=== PATIENT | female | born 1950 | race Caucasian/White ===

== ENCOUNTER 2019-01-31 01:58 | Inpatient (IN) | payer OTHER, MEDICAID ==
[2019-01-31] VITALS (9 sets, daily range): BP systolic 106–129; BP diastolic 44–61
[~2019-01-31] VITALS: Ht 152.4 cm; Wt 78.5 kg
--- NOTE | 2019-01-31 01:58 | NUR ---
Note undone in EDM - 01/31/19 at 0211 by [facility] PT BIB [facility] TO ED FOR PRE-BOOK. PT WAS DIAGNOSED WITH MRSA WOUND BLE 2 WKS AGO. ALSO STATED SIPHYLIS INFECTION, TAKING BACTRIM AND KEFLEX X 4 DAYS. DENIES PMH. PT AAO X4, GCS 15. AMBULATORY WOTH STDEAY GAIT. SKIN WARM AND DRY, NOTED BLE WOUND. VSS, NO ACUTE DISTRESS AT THIS TIME. DR.KURERA FORBES EAWARE OF PT STATUS. WILL CONTINUE TO MONITOR
--- NOTE | 2019-01-31 01:58 | NUR ---
PT [facility] TO ER BED 11
[2019-01-31] MEDS ORDERED: NACL 0.9% 1,000 ML IV SCH (02:04)
[2019-01-31] MEDS ORDERED: cefTRIAXone 1,000 MG in DEXT 5% MINI-BAG PLUS 50 ML IV ONE (02:05)
[2019-01-31] MEDS ORDERED: cefTRIAXone 1,000 MG VIAL ONE ×2 (02:10→02:11)
--- NOTE | 2019-01-31 02:16 | NUR ---
EMT PERFORMING EKG AT BEDSIDE.
--- NOTE | 2019-01-31 02:19 | NUR ---
EKG PERFORMED AT BEDSIDE. PT COVERED IN GOWN DURING PROCEDURE
--- NOTE | 2019-01-31 02:22 | NUR ---
XRAY AT BEDSIDE.
--- NOTE | 2019-01-31 02:23 | NUR ---
MARY FROM HOME FOR ALOC PER SON. PT ARRIVES AWAKE, A/O TO PERSON, PLACE, EVENT, MONTH. PT UNABLE TO PROVIDE CORRECT YEAR. WHEN ASKED WHAT HAPPENED PRIOR TO AMBULANCE PT STATES "I WAS SLEEPING. MY SON WANTED HIS GIRLFRIEND TO STAY AT THE HOUSE." SPEECH IS INAPPROPRIATE TO SOME QUESTIONS ASKED. PT ABLE TO FOLLOW COMMANDS. PT APPEARS TIRED, SOMEWHAT CONFUSED. -- PT CALM, COOPERATIVE. -- SKIN PINK, WARM, DRY. BREATHING EVEN, UNLABORED. SPO2 86% ON RA. PT PLACED ON 2 LPM O2 VIA NC: SPO2- 99% -- HAND MOLD MAKER STRONG, EQUAL. PEDAL PUSHES STRONG, EQUAL. NO WEAKNESS NOTED. PMH-- DM, HTN, PACEMAKER, ESRD; DIALYSIS MWF Addendum: 01/31/[address] [facility] SHUNT NOTED TO RIGHT UPPER ARM. THRILL/BRUIT NOTED.
[2019-01-31 02:25] LABS: BASOPHILS # (AUTO) 0.1 K/uL (0.00-0.22); BASOPHILS % (AUTO) 1.3 % (0.0-2.0); EOSINOPHILS # (AUTO) 0.4 K/uL (0-0.4); EOSINOPHILS % (AUTO) 5.7 % (0.0-4.0); HEMATOCRIT 40.6 % (36-48); HEMOGLOBIN 13.6 g/dL (12.0-16.0); LYMPHOCYTES # (AUTO) 1.8 K/uL (2.5-16.5); LYMPHOCYTES % (AUTO) 22.7 % (20.5-51.1); MEAN CORPUSCULAR HEMOGLOBIN 34 pg (27-31); MEAN CORPUSCULAR HGB CONC 34 g/dL (33-37); MEAN CORPUSCULAR VOLUME 101.2 fL (80-94); MONOCYTES # (AUTO) 0.8 K/uL (0.8-1.0); MONOCYTES % (AUTO) 10.3 % (1.7-9.3); NEUTROPHILS # (AUTO) 4.6 K/uL (1.8-7.7); PLATELET COUNT (AUTO) 129 K/uL (140-450); RED BLOOD CELL COUNT(AUTO) 4.01 MIL/uL (4.20-5.40); RED CELL DISTRIBUTION WIDTH 14.1 % (11.6-13.7); WHITE BLOOD COUNT (AUTO) 7.7 K/uL (4.8-10.8)
[2019-01-31 02:43] LABS: ANION GAP 12.2 (8-16); CARBON DIOXIDE 31.5 mmol/L (21-32); POTASSIUM 3.7 mmol/L (3.5-5.1)
[2019-01-31 02:44] LABS: ALBUMIN 3.2 g/dL (3.4-5.0); TOTAL BILIRUBIN 0.7 mg/dL (0.0-1.0)
[2019-01-31 02:45] LABS: CREATININE 4.9 mg/dL (0.6-1.3)
--- NOTE | 2019-01-31 03:00 | NUR ---
SON IS AT BEDSIDE. WHEN ASKED FOR MORE INFORMATION, SON STATES "SHE'S ACTING LIKE SHE'S DRUNK. THE LAST TIME SHE ACTED THIS WAY WAS WHEN SHE TOOK TOO MANY SLEEPING PILLS". PT STATES SHE ONLY TOOK ONE SLEEPING PILL BUT DOES NOT KNOW THE NAME OF THE MEDICATION. SON STATES HE LEFT HER MEDICATIONS AT HOME AND WILL GO BACK TO GET THEM.
--- NOTE | 2019-01-31 03:40 | NUR ---
PT TAKEN TO CT [facility]IA [facility].
--- NOTE | 2019-01-31 03:52 | NUR ---
PT RETURNED FROM [facility]IA [facility].
--- NOTE | 2019-01-31 04:14 | NUR ---
PT SLEEPING DEEPLY, SNORING LOUDLY. AROUSABLE TO SHAKING, PAINFUL STIMULI. VSS. SKIN PINK, WARM, DRY. BREATHING EVEN, UNLABORED.
[2019-01-31] MEDS ORDERED: MORPHINE SULFATE 2 MG/ML SYR IVP PRN (05:05)
[2019-01-31] MEDS ORDERED: MEDICATION REC. PHARMACY CONS. 1 EA MISC MC PRN (05:05)
[2019-01-31] MEDS ORDERED: ACETAMINOPHEN 325 MG TAB PO PRN (05:05)
[2019-01-31] MEDS ORDERED: DOCUSATE SODIUM 100 MG GELCAP PO PRN (05:05)
[2019-01-31] MEDS ORDERED: HYDROcodone/APAP 7.5/325 MG 1 TAB PO PRN (05:05)
[2019-01-31] MEDS ORDERED: INSULIN LISPRO SLIDING SCALE 100 UNITS/ML VIAL SUBQ PRN (05:15)
[2019-01-31] MEDS ORDERED: DEXTROSE 50% 50 ML SYR IVP PRN (05:15)
--- NOTE | 2019-01-31 05:36 | NUR ---
Patient will be admitted to care of Dr. Brizuela. Admited to TELE. Will go to room 121A. Belongings list completed. Report to VINC[facility] Watts.
--- NOTE | 2019-01-31 05:40 | NUR ---
ADMITTED A 69 F FROM ER. CAME BY [facility] DUE TO ALOC. PT IS AWAKE,ALERT ,ORIENTED X2. TELE PT . WITH PACEMAKER. NO C/O ANY DISCOMFORT NOR PAIN NOTED. SKIN ASSESSMENT DONE. SKIN INTACT. WITH HL ON THE LT AC G#20. CLEAR AND PATENT. HD PT WITH RT UPPER ARM AV SHUNT WITH GOOD BRUIT AND THRILL . DRESSING DRY AND CLEAN. ORIENTED TO HOSPITAL ROUTINES. BUT STILL NEED REINFORCEMENT. BED PLACED ON LOW POSITION. FREQ ROUNDS NEEDED , CALL LIGHT PLACED WITHIN EASY REACH AND BED ALARM ON. INITIATE HIGH RISK FOR FALL . AND ALSO RESTRICTED ARM BAND FOR RT AV SHUNT. WILL ENDORSED PT TO AM NURSE FOR COMPLETE ADMISSION.
[2019-01-31] MEDS: NACL 0.9% 1,000 ML IV SCH (05:59)
--- NOTE | 2019-01-31 06:00 | NUR ---
IVF NS @100ML /HR ON THE LT AC G#20.
[2019-01-31] MEDS: BLOOD GLUCOSE MONITORING 1 DEV DEV FS SCH ×2 (06:39→11:30)
--- NOTE | 2019-01-31 06:39 | NUR ---
BLOOD SUGAR WAS CHECKED RESULT 107. NO INSULIN COVERAGE.
[2019-01-31 06:42] LABS: PROTHROMBIN TIME 13.2 secs (10.8-13.4)
--- NOTE | 2019-01-31 07:10 | NUR ---
ENDORSED PATIENT IN STABLE CONDITION TO DAY NURSE FOR CONTINUITY OF CARE.
[2019-01-31 07:14] LABS: CHOL/HDL RATIO 2.2 (1-4.5); MAGNESIUM 1.7 mg/dL (1.8-2.4); PHOSPHORUS 2.9 mg/dL (2.5-4.9)
[2019-01-31 07:15] LABS: FREE T4 (FREE THYROXINE) 0.91 ng/dL (0.76-1.46); THYROID STIMULATING HORMONE 5.3 uIU/mL (0.34-3.74)
--- NOTE | 2019-01-31 07:25 | NUR ---
PATIENT RECEIVED FROM NIGHT NURSE. AAO X 2. EATING BREAKFAST IN BED HIGH SOSA. BED IN LOW POSITION. IN NO DISTRESS. NO PAIN REPORTED. IV IN PLACE INFUSING PER ORDER. REVIEWED PLAN OF CARE WITH PATIENT, REINFORCEMENT NEEDED. CALL SEWELL WITHIN REACH. SAFETY PRECAUTIONS IN PLACE. ALL NEEDS MET AT THIS TIME. WILL CONTINUE TO MONITOR.
--- NOTE | 2019-01-31 08:24 | NUR ---
PATIENT HAS BEEN SCREENED AND CATEGORIZED MODERATE NUTRITION RISK. PATIENT WILL BE SEEN WITHIN 3-5 DAYS OF ADMISSION. 02/02/19-02/04/[address]
[2019-01-31] MEDS ORDERED: MAG SULF 2000 MG/WATER PREMIX 50 ML IV SCH (09:30)
--- NOTE | 2019-01-31 10:10 | NUR ---
MEDICATIONS ADMINISTERED PER ORDER. PATIENT TOLERATED WELL AND IS IN NO DISTRESS. SAFETY MEASURES IN PLACE. WILL CONTINUE TO MONITOR.
[2019-01-31] MEDS ORDERED: DULO30EC PO (10:55)
[2019-01-31] MEDS ORDERED: FURO80TA6 PO (10:55)
[2019-01-31] MEDS ORDERED: METO100T14 PO (10:55)
[2019-01-31] MEDS ORDERED: IBUP-2213 PO (10:55)
[2019-01-31] MEDS ORDERED: CALC500C17 PO (10:55)
[2019-01-31] MEDS ORDERED: AMIO200T5 PO (10:55)
[2019-01-31] MEDS ORDERED: CLON0.2T43 PO (10:55)
--- NOTE | 2019-01-31 12:52 | NUR ---
BLOOD GLUCOSE CHECKED. IV INFUSING PER ORDERED RATE. PATIENT IN NO DISTRESS. DENIES PAIN. WILL CONTINUE TO MONITOR
--- NOTE | 2019-01-31 15:19 | NUR ---
OBSERVED PATIENT WHILE SHE AMBULATED TO USE THE RESTROOM. AMBULATED APPROPRIATELY WITHOUT THE NEED OF ASSISTANCE. SAFETY MEASURES IN PLACE. WILL CONTINUE TO MONITOR.
[2019-01-31] MEDS ORDERED: FUROSEMIDE 40 MG/4 ML VIAL IVP SCH (15:45)
--- NOTE | 2019-01-31 19:20 | NUR ---
RECEIVED REPORT FORM CAMELIA RN DAYSHIFT NURSE AND KAYLAN KAUR DAYSHIFT NURSE AT BEDSIDE FOR CONTINUITY OF CARE, PT IN STABLE CONDITION.
--- NOTE | 2019-01-31 19:20 | NUR ---
GAVE REPORT TO NIGHT NURSE FOR CONTINUITY OF CARE. PATIENT IN STABLE CONDITION
--- NOTE | 2019-01-31 19:30 | NUR ---
PT IN BED WITH SIDE RAILS UP X2 AND IS RECEIVING HEMODIALYSIS AT THIS TIME. PT IS AWAKE AND ALERT WITH NO S/S OF PAIN OR DISTRESS NOTED. V/S FOLLOWS T 97.6 P 60 R 18 B/P 113/52 02 94% ON ROOM AIR.
--- NOTE | 2019-01-31 19:51 | NUR ---
PT COMPLETED HEMODIALYSIS AT BEDSIDE 3 LITERS OUT AND FINAL B/P 102/51. WILL CONTINUE TO MONITOR THE PRESSURE DRESSING ON RIGHT ARM. PER DIALYSIS NURSE.
[2019-01-31 20:03] LABS: APPEARANCE,URINE CLOUDY (CLEAR); BILIRUBIN,URINE NEGATIVE (NEGATIVE); BLOOD, URINE 2+ (NEGATIVE); COLOR,URINE YELLOW (YELLOW); LEUKOCYTE ESTERASE ,URINE 2+ (NEGATIVE); NITRITE, URINE NEGATIVE (NEGATIVE); UGLUCOSE NEGATIVE (NEGATIVE)
[2019-01-31 20:07] LABS: BARBITURATE, URINE NEG. ng/ml (NEG <=200); BENZODIAZEPINE, URINE NEG. ng/mL (NEG <=200); CANNABINOID, URINE NEG. ng/mL (NEG <=50); COCAINE, URINE NEG. ng/mL (NEG <=300); OPIATE, URINE NEG. ng/mL (NEG <=2000); PHENCYCLIDINE SCREEN,URINE NEG. ng/mL (NEG <=25)
[2019-01-31 20:17] LABS: WBC,URINE TOO MANY TO COUNT /HPF (0-5)
[2019-01-31] MEDS: cloNIDine 0.1 MG TAB PO SCH (21:00)
[2019-01-31] MEDS: DULoxetine 30 MG CAPDR PO SCH (21:31)
[2019-01-31] MEDS: MELATONIN 3 MG TAB PO PRN (21:39)
--- NOTE | 2019-01-31 21:40 | NUR ---
PT GIVEN SCHEDULED MEDS OF CYMBALTA AND HEPARIN AT THIS TIME. PT CATAPRES AND PREVIOUSLY ORDERED LASIX WAS HELD DUE TO LOW B/P. PT C/O OF SLEEPLESSNESS, GIVEN PO/PRN OF MELATONIN. PRESSURE DRESSING ON RIGHT UPPER ARM INTACT NO S/S OF BLEEDING BRUIT AND THRILL FELT.
--- NOTE | 2019-01-31 22:45 | NUR ---
PT C/O OF ITCHINESS, SPOKE WITH MD JOHNSON AND OBTAINED AN ORDER FOR 1X PO DOSE OF BENADRYL 25MG.
[2019-02-01] VITALS: BP 92/48
--- NOTE | 2019-02-01 00:15 | NUR ---
PT IN BED AWAKE NO S/S OF PAIN OR DISTRESS NOTED. PT GIVEN REQUESTED AND ORDERED BENADRYL FOR C/O OF ITCHINESS, WILL MONITOR FOR EFFECT. V/S FOLLOWS T 97.8 P 60 R 18 B/P 92/48 02 97% ON ROOM AIR.
--- NOTE | 2019-02-01 02:30 | NUR ---
PT ASLEEP IN LOW BED IV SITE INTACT AND RUNNING N/S AT 20MLS/HR TO KVO. ALL FALLS PRECAUTIONS IN PLACE.
[2019-02-01 04:00] VITALS: BP 110/53
--- NOTE | 2019-02-01 04:00 | NUR ---
PT IN BED NO C/O VOICED IV SITE ON LEFT ARM INTACT AND FLUSHED PATENT. V/S FOLLOWS T 97.6 P 60 R 18 B/P 110/53 02 94% ON ROOM AIR. ALL FALLS PRECAUTIONS IN PLACE.
[2019-02-01] MEDS: NACL 0.9% 1,000 ML IV SCH (05:05)
[2019-02-01 06:22] LABS: BASOPHILS # (AUTO) 0.1 K/uL (0.00-0.22); BASOPHILS % (AUTO) 1.5 % (0.0-2.0); EOSINOPHILS # (AUTO) 0.4 K/uL (0-0.4); EOSINOPHILS % (AUTO) 7.1 % (0.0-4.0); HEMATOCRIT 42.1 % (36-48); HEMOGLOBIN 14.3 g/dL (12.0-16.0); LYMPHOCYTES # (AUTO) 1.3 K/uL (2.5-16.5); LYMPHOCYTES % (AUTO) 21.7 % (20.5-51.1); MEAN CORPUSCULAR HEMOGLOBIN 34 pg (27-31); MEAN CORPUSCULAR HGB CONC 34 g/dL (33-37); MEAN CORPUSCULAR VOLUME 101.3 fL (80-94); MONOCYTES # (AUTO) 0.6 K/uL (0.8-1.0); MONOCYTES % (AUTO) 9.9 % (1.7-9.3); NEUTROPHILS # (AUTO) 3.5 K/uL (1.8-7.7); NEUTROPHILS % (AUTO) 59.8 % (42.2-75.2); PLATELET COUNT (AUTO) 109 K/uL (140-450); RED BLOOD CELL COUNT(AUTO) 4.15 MIL/uL (4.20-5.40); RED CELL DISTRIBUTION WIDTH 14.4 % (11.6-13.7); WHITE BLOOD COUNT (AUTO) 5.8 K/uL (4.8-10.8)
--- NOTE | 2019-02-01 07:10 | NUR ---
PATIENT RECEIVED FROM NIGHT NURSE. AAO X 4. EATING BREAKFAST IN BED SOSA. BED IN LOW POSITION. IN NO DISTRESS. NO PAIN REPORTED. IV IN PLACE INFUSING PER ORDER. REVIEWED PLAN OF CARE WITH PATIENT, REINFORCEMENT NEEDED. CALL SEWELL WITHIN REACH. SAFETY PRECAUTIONS IN PLACE. ALL NEEDS MET AT THIS TIME. WILL CONTINUE TO MONITOR.
[2019-02-01 07:54] LABS: MAGNESIUM 2.1 mg/dL (1.8-2.4); PHOSPHORUS 4.4 mg/dL (2.5-4.9)
[2019-02-01 08:00] VITALS: BP 118/47
[2019-02-01 08:08] LABS: T4 (THYROXINE) 7.2 ug/dL (4.5-12.0)
[2019-02-01 08:14] LABS: ANION GAP 14.9 (8-16); CARBON DIOXIDE 28.2 mmol/L (21-32); POTASSIUM 4.1 mmol/L (3.5-5.1)
[2019-02-01 08:15] LABS: CREATININE 4.9 mg/dL (0.6-1.3)
[2019-02-01] MEDS: CALCIUM CARBONATE 500 MG TAB.CHEW PO SCH (08:51)
[2019-02-01] MEDS: LACTOBACILLUS RHAMNOSUS GG 1 EACH CAP PO SCH (08:51)
[2019-02-01] MEDS: AMIODARONE 200 MG TAB PO SCH (08:52)
[2019-02-01] MEDS: cloNIDine 0.1 MG TAB PO SCH ×2 (09:00→20:09)
[2019-02-01] MEDS: METOPROLOL SUCCINATE 50 MG TABER PO SCH (09:00)
--- NOTE | 2019-02-01 09:24 | NUR ---
MEDICATIONS ADMINISTERED PER ORDER. PATIENT TOLERATED WELL AND IS IN NO DISTRESS. SAFETY MEASURES IN PLACE. WILL CONTINUE TO MONITOR.
[2019-02-01 12:00] VITALS: BP 125/64
--- NOTE | 2019-02-01 12:11 | NUR ---
ADMINISTERED BENADRYL PER ORDER. PATIENT EATING LUNCH IN NO DISTRESS. WILL CONTINUE TO MONITOR.
--- NOTE | 2019-02-01 15:55 | NUR ---
PT VITAL SIGNS TAKEN. PT IN COMPANY OF HER SON. NO PAIN OR DISCOMFORT EXPRESSED. WILL CONTINUE TO MONITOR.
[2019-02-01 16:00] VITALS: BP 121/55
--- NOTE | 2019-02-01 19:16 | NUR ---
GAVE REPORT TO NIGHT NURSE FOR CONTINUITY OF CARE. PATIENT IN STABLE CONDITION
--- NOTE | 2019-02-01 19:17 | NUR ---
RECEIVED BEDSIDE REPORT FROM DAY SHIFT NURSE, CAMELIA. AAOX4. NO S/S OF SOB ON ROOM AIR. DENIES PAIN. NO DISTRESS NOTED. IV ON LAC 20G, RUNNING NS @20MLS. PATENT, INTACT, ASYMPTOMATIC. AV SHUNT ON RIGHT ARM. BOARD UPDATED. REVIEWED PLAN OF CARE WITH PATIENT, REINFORCEMENT NEEDED. BED IN LOW POSITION, CALL SEWELL WITHIN REACH. SAFETY PRECAUTIONS IN PLACE. ALL NEEDS MET AT THIS TIME. WILL CONTINUE TO MONITOR.
[2019-02-01] MEDS: DULoxetine 30 MG CAPDR PO SCH (20:08)
--- NOTE | 2019-02-01 20:08 | NUR ---
GIVEN CYMBALTA MD ORDERED. PT TOLERATE WELL. HELD HEPARIN D/T DECREASED PLATELET. PT REFUSED CLONIDINE FOR TOO LOW BP. BP 119/53, HR:60, EXPLAINED BENEFIT AND RISK, PT STILL REFUSED.
[2019-02-01] MEDS: MELATONIN 3 MG TAB PO PRN (22:12)
[2019-02-01] MEDS: ONDANSETRON 4 MG/2 ML VIAL IM/IVP PRN (22:15)
--- NOTE | 2019-02-01 22:15 | NUR ---
PT C/O NAUSEA. ADMINISTER ZOFRAN MD ORDERED. PT ALSO C/O SLEEPLESSNESS, GIVEN MELATONIN MD ORDERED. PT TOLERATED WELL. WILL CONTINUE TO MONITOR.
--- NOTE | 2019-02-02 | NUR ---
VS CHECKED, WITHIN NORMAL RANGE. WILL CONTINUE TO MONITOR.
[2019-02-02 01:20] VITALS: BP 118/45
--- NOTE | 2019-02-02 02:25 | NUR ---
PT SLEEPING IN BED. BREATHING EVEN AND UNLABORED ON ROOM AIR. WILL CONTINUE TO MONITOR.
--- NOTE | 2019-02-02 04:42 | NUR ---
PT SLEEPING IN BED. NO ACUTE DISTRESS NOTED. BED IN LOW POSITION, CALL LIGHT WITHIN REACH.
[2019-02-02] MEDS: NACL 0.9% 1,000 ML IV SCH (05:05)
[2019-02-02 06:04] LABS: BASOPHILS # (AUTO) 0.1 K/uL (0.00-0.22); BASOPHILS % (AUTO) 1.2 % (0.0-2.0); EOSINOPHILS # (AUTO) 0.4 K/uL (0-0.4); EOSINOPHILS % (AUTO) 7.9 % (0.0-4.0); HEMOGLOBIN 13.2 g/dL (12.0-16.0); LYMPHOCYTES # (AUTO) 1.1 K/uL (2.5-16.5); MEAN CORPUSCULAR HEMOGLOBIN 34 pg (27-31); MEAN CORPUSCULAR HGB CONC 34 g/dL (33-37); MEAN CORPUSCULAR VOLUME 100.5 fL (80-94); MONOCYTES # (AUTO) 0.5 K/uL (0.8-1.0); MONOCYTES % (AUTO) 8.9 % (1.7-9.3); NEUTROPHILS # (AUTO) 3.4 K/uL (1.8-7.7); PLATELET COUNT (AUTO) 107 K/uL (140-450); RED BLOOD CELL COUNT(AUTO) 3.88 MIL/uL (4.20-5.40); RED CELL DISTRIBUTION WIDTH 13.9 % (11.6-13.7); WHITE BLOOD COUNT (AUTO) 5.4 K/uL (4.8-10.8)
--- NOTE | 2019-02-02 07:09 | NUR ---
ENDORSED PT TO DAY SHIFT NURSE, KI. PT IN STABLE CONDITION.
--- NOTE | 2019-02-02 07:10 | NUR ---
REPORT RECEIVED FROM PROSTHODONTIST/OWNER NURSE AT BEDSIDE FOR CONTINUITY OF CARE. PATIENT ASLEEP BUT AROUSABLE, RESPIRATIONS EVEN AND UNLABORED ON ROOM AIR. NO SIGN OF DISTRESS OR SOB NOTED. IV SITE INTACT, ASYMPTOMATIC AND PATENT, INFUSING IVF WELL AT 20 ML/HR. RIGHT AV FISTULA ACCESS FOR HD. HD SCHEDULED FOR TODAY, WILL FOLLOW UP WITH [facility]. UPDATED BOARD. SAFETY PRECAUTION IN PLACE, CALL LIGHT WITHIN REACH, WILL CONTINUE TO MONITOR PATIENT.
[2019-02-02 08:00] VITALS: BP 118/57
[2019-02-02] MEDS: METOPROLOL SUCCINATE 50 MG TABER PO SCH (09:00)
[2019-02-02] MEDS: cloNIDine 0.1 MG TAB PO SCH (09:00)
[2019-02-02] MEDS: CALCIUM CARBONATE 500 MG TAB.CHEW PO SCH (09:13)
[2019-02-02] MEDS: LACTOBACILLUS RHAMNOSUS GG 1 EACH CAP PO SCH (09:13)
[2019-02-02] MEDS: AMIODARONE 200 MG TAB PO SCH (09:14)
--- NOTE | 2019-02-02 09:15 | NUR ---
ORDERED MEDICATIONS GIVEN. BP MEDS WITHHELD DUE TO PATIENT GETTING HD TODAY. PATIENT TOLERATING THEM WELL, REQUESTED FOR ZOFRAN D/T NAUSEA. WILL GIVE REQUESTED. SAFETY PRECAUTIONS IN PLACE, CALL LIGHT WITHIN REACH, WILL CONTINUE TO MONITOR PATIENT.
[2019-02-02] MEDS: ONDANSETRON 4 MG/2 ML VIAL IM/IVP PRN (09:29)
[2019-02-02 09:31] LABS: ANION GAP 17.8 (8-16); CARBON DIOXIDE 24.4 mmol/L (21-32); POTASSIUM 4.2 mmol/L (3.5-5.1)
[2019-02-02 09:33] LABS: CREATININE 6.7 mg/dL (0.6-1.3)
--- NOTE | 2019-02-02 09:50 | NUR ---
CALLED [facility] TO FOLLOW UP WITH HD ORDER. THEY ARE AWARE. PT IN TO SEE THE PATIENT. WILL WAIT FOR THEIR RECOMMENDATION. INFORMED DR. CRAWFORD ABOUT PATIENT'S REQUEST FOR BENADRYL, AND PLATELET LEVEL AND LABS, PATIENT WILL BE GETTING HD TODAY. NO NEW ORDERS, AND HEPARIN DOSE CAN BE HELD AT THIS TIME. WILL CONTINUE TO MONITOR PATIENT.
--- NOTE | 2019-02-02 11:15 | NUR ---
PATIENT RESTING WITH EYES CLOSED IN BED, CURRENTLY GETTING HEMODIALYSIS. NO COMPLAINTS AT THIS TIME. WILL CONTINUE TO MONITOR PATIENT.
--- NOTE | 2019-02-02 12:21 | NUR ---
Late entry. Confirmed with RN that 0.9 NS 1000ml IV completed at 0315
--- NOTE | 2019-02-02 13:00 | NUR ---
*S.T. Bedside swallow eval completed* Pt presents w/ adequate oropharyngeal swallow function w/o overt s/s aspiration across all textures. Pt able to self-feed w/ some assistance. Recommend: 1) Continue current diet textures of regular w/ thin liquids. Straws OK. 2) P.O. meds ok whole one at a time. No further tx indicated at this time. DC to [facility]. Endorsed to VINCENT Barrow. Time [id number]
--- NOTE | 2019-02-02 14:40 | NUR ---
UNABLE TO DO ECHO. PATIENT GETTING DIALYSIS. WILL TRY TOMORROW
--- NOTE | 2019-02-02 15:10 | NUR ---
PATIENT RESTING IN BED, NO COMPLAINTS AT THIS TIME. WILL CONTINUE TO MONITOR PATIENT.
[2019-02-02 16:00] VITALS: BP 114/58
--- NOTE | 2019-02-02 17:30 | NUR ---
PATIENT WANTS TO GO HOME, WANTED TO SPEAK TO DR. WEEMS. INFORMED DR. WEEMS.
--- NOTE | 2019-02-02 19:26 | NUR ---
REPORT GIVEN TO OPTICAL MECHANIC RN AT BEDSIDE FOR CONTINUITY OF CARE. PATIENT SIGNED DISCHARGE INSTRUCTIONS. PATIENT CURRENTLY WAITING FOR SON TO COME TO PICK HER UP TO BE DISCHARGED HOME. PATIENT IN STABLE CONDITION.
--- NOTE | 2019-02-02 19:27 | NUR ---
Received endorsement from AM shift RN; patient A/Ox4, able to make needs known, Faroese speaking but can understand Albanian, ambulatory. Patient talking with family members; introduced self, updated board. No SOB or distress noted, on room air. IV site on left antecubital, running IVF at 20mL/hr. Skin intact. Bed in the lowest position, call light within reach. Initial assessment done. Will continue to monitor.
--- NOTE | 2019-02-02 20:20 | NUR ---
Patient discharged to home. Home meds given, discharge paperwork signed, discharge packet given. Removed IV, tip intact, removed ID bands. Patient left unit via wheelchair, accompanied by son. Vitals stable upon discharge.
== END 2019-02-02 20:25 | disposition home or self-care (01) | DRG 917 ==
LOC: MED 01:58 → MTU 05:05
PROVIDERS: ADMIT General Practice; ATTEND General Practice
PROC: 5A1D70Z Performance of Urinary Filtration, Intermittent, Less than 6 Hours Per Day (ICD-10-PCS; principal; 2019-01-31)
PROC: 5A1D70Z Performance of Urinary Filtration, Intermittent, Less than 6 Hours Per Day (ICD-10-PCS; 2019-02-02)
DX: T42.6X1A Poisoning by other antiepileptic and sedative-hypnotic drugs, accidental (unintentional), initial encounter (principal); N17.0 Acute kidney failure with tubular necrosis; N18.6 End stage renal disease; E44.1 Mild protein-calorie malnutrition; I12.0 Hypertensive chronic kidney disease with stage 5 chronic kidney disease or end stage renal disease; N39.0 Urinary tract infection, site not specified; Q61.3 Polycystic kidney, unspecified; G90.8 Other disorders of autonomic nervous system; I48.2 Chronic atrial fibrillation; E11.22 Type 2 diabetes mellitus with diabetic chronic kidney disease; E83.42 Hypomagnesemia; F32.9 Major depressive disorder, single episode, unspecified; G47.00 Insomnia, unspecified; E02 Subclinical iodine-deficiency hypothyroidism; Z68.33 Body mass index [BMI] 33.0-33.9, adult; Z99.2 Dependence on renal dialysis; Z95.0 Presence of cardiac pacemaker; Y92.89 Other specified places as the place of occurrence of the external cause
CPT/HCPCS: 36415; 70450; 71045; 80048; 80053; 80305; 81001; 82140; 82150; 82948; 83036; 83605; 83690; 83735; 83880; 84100; 84436; 84439; 84443; 84484; 85025; 85610; 85730; 87040; 87081; 87086; 92610; 93005; 93880; 96365; 99285; J0696; J1644; J2405; J3475; J7030; J7060; Q0092; Q0163

== ENCOUNTER 2019-02-17 22:48 | Inpatient (IN) | payer OTHER, MEDICAID ==
[~2019-02-17] VITALS: Ht 162.6 cm; Wt 74.8 kg
[~2019-02-17 22:48] MED LIST: AMIO200T5 PO; CALC500C17 PO; CLON0.2T43 PO; DULO30EC PO; FURO80TA6 PO; IBUP-2213 PO; METO100T14 PO
--- NOTE | 2019-02-17 22:59 | NUR ---
PT TAKEN TO BED 6
[2019-02-17 23:00] VITALS: BP 122/55
--- NOTE | 2019-02-17 23:00 | NUR ---
69Y FEMALE PRESENTED TO ED, C/O SOB AND CHEST PAIN THAT STARTED AT 1700HR YESTERDAY. PT CHEST PAIN ON AND OFF AT 6/10 NON-RADIATING. PT STATED THAT SHE FEELS THIS WAY WHEN SHE'S HAVING FLUID OVERLOAD. PT HAS HD EVERY M-W-F-S. DENIES ANY FEVER/CHILLS, -N/V/D. PT AAOX4, RR EVEN UNLABORED, GCS 15, EDMD MADE AWARE, WILL CONTINUE TO MONITOR CLOSELY.
--- NOTE | 2019-02-17 23:17 | NUR ---
Dr. Zarate examining patient.
[2019-02-17 23:19] LABS: BASOPHILS # (AUTO) 0.1 K/uL (0.00-0.22); BASOPHILS % (AUTO) 1.3 % (0.0-2.0); EOSINOPHILS # (AUTO) 0.5 K/uL (0-0.4); EOSINOPHILS % (AUTO) 7.9 % (0.0-4.0); HEMATOCRIT 35.7 % (36-48); HEMOGLOBIN 11.9 g/dL (12.0-16.0); LYMPHOCYTES # (AUTO) 1.5 K/uL (2.5-16.5); LYMPHOCYTES % (AUTO) 22.9 % (20.5-51.1); MEAN CORPUSCULAR HEMOGLOBIN 34 pg (27-31); MEAN CORPUSCULAR HGB CONC 33 g/dL (33-37); MEAN CORPUSCULAR VOLUME 103.6 fL (80-94); MONOCYTES # (AUTO) 0.8 K/uL (0.8-1.0); MONOCYTES % (AUTO) 13.1 % (1.7-9.3); NEUTROPHILS # (AUTO) 3.5 K/uL (1.8-7.7); NEUTROPHILS % (AUTO) 54.8 % (42.2-75.2); PLATELET COUNT (AUTO) 135 K/uL (140-450); RED BLOOD CELL COUNT(AUTO) 3.45 MIL/uL (4.20-5.40); RED CELL DISTRIBUTION WIDTH 14.3 % (11.6-13.7); WHITE BLOOD COUNT (AUTO) 6.4 K/uL (4.8-10.8)
--- NOTE | 2019-02-17 23:27 | NUR ---
X-Ray at bedside.
[2019-02-17 23:34] LABS: ALBUMIN 3.2 g/dL (3.4-5.0); CARBON DIOXIDE 32.3 mmol/L (21-32); POTASSIUM 4.3 mmol/L (3.5-5.1); TOTAL BILIRUBIN 0.8 mg/dL (0.0-1.0)
[2019-02-17 23:41] LABS: CREATININE 6.2 mg/dL (0.6-1.3)
[2019-02-17] MEDS ORDERED: ACETAMINOPHEN 325 MG TAB PO PRN (23:50)
[2019-02-17] MEDS ORDERED: HYDROcodone/APAP 7.5/325 MG 1 TAB PO PRN (23:50)
[2019-02-17] MEDS ORDERED: DOCUSATE SODIUM 100 MG GELCAP PO PRN (23:50)
[2019-02-18 00:08] LABS: PHOSPHORUS 4.1 mg/dL (2.5-4.9)
[2019-02-18 00:09] LABS: PROTHROMBIN TIME 10.5 secs (10.8-13.4)
--- NOTE | 2019-02-18 00:20 | NUR ---
RECEIVED PT AWAKE, ALERT 0 X 4, IRISH BUT CAN SPEAK / UNDERSTAND SPANISH WELL. PT AMBULATORY. ASSESSMENT DONE ON PT HISTORY AND PHYSICALS DOEN. SKIN CHECK DONE. MRSA SCREEN. WITH R UA AV SHUNT; WITH LAC G 20, PATENT AND INTACT. NO IVF RUNNING. POC DISCUSSED. PLACED ON LOW BED. CALL LIGHT WITHIN REACH WILL ENDORSE TO NEXT SHIFT.
--- NOTE | 2019-02-18 00:20 | NUR ---
PATIENT ADMITTED TO TELEMETRY UNIT ROOM 113 UNDER THE CARE OF DR ABREU. BELONGINGS LIST COMPLETED. PATIENT TRANSPORTED VIA GURNEY IN STABLE CONDITION. BEDSIDE REPORT GIVEN TO VINCENT QUINTEROS.
[2019-02-18] MEDS ORDERED: ONDANSETRON 4 MG/2 ML VIAL ONE ×3 (00:51→20:27)
[2019-02-18] MEDS ORDERED: NITROGLYCERIN 0.4 MG TAB SL PRN (00:55)
--- NOTE | 2019-02-18 00:55 | NUR ---
PT VOMITED 1 X, SMALL AMOUNT, MORE ON SALIVA. FEELING NAUSEOUS ADMINISTERED ZOFRAN
[2019-02-18] MEDS: ONDANSETRON 4 MG/2 ML VIAL IM/IVP PRN ×3 (00:56→20:40)
[2019-02-18] MEDS: NACL 0.9% 1,000 ML IV SCH ×2 (01:00)
--- NOTE | 2019-02-18 02:15 | NUR ---
PT ATE CRACKERS AND DR. NNAMDI SPENCER SAID TO GO AHEAD WITH A RENAL DIET
--- NOTE | 2019-02-18 03:01 | NUR ---
RE; DIALYSIS SINCE PT HAS MWF SCHED FOR DIALYSIS. DR COTO SAID STILL CONTACTING FOR NEPHRO CONSULT,
[2019-02-18 04:00] VITALS: BP 92/50
--- NOTE | 2019-02-18 05:15 | NUR ---
BLADDER SCAN DONE, 0 ML FOUND ON THE LOWER ABDOMEN. NO COMPLAINTS OF URINARY RETENTION, NO PAIN UPON PALPATION.
--- NOTE | 2019-02-18 05:20 | NUR ---
SENT URINE SAMPLE FOR DRUG SCREEN,WENT TO LAB AND MARINE ENGINEERING PROFESSOR SAID INSUFFICIENT AMOUNT FOR URINALYSIS. BUT CAN BE USED FOR DRUG SCREEN. WILL ENDORSE TO NEXT SHIFT - UA COLLECTION (IF POSSIBLE MORE THAN 5 ML) Addendum: 02/18/19 at 0522 by Lakesha Whitfield RN AMEND TO MORE THAN 10 ML (NOT 5 ML)
[2019-02-18 05:29] LABS: BARBITURATE, URINE NEG. ng/ml (NEG <=200); BENZODIAZEPINE, URINE NEG. ng/mL (NEG <=200); CANNABINOID, URINE NEG. ng/mL (NEG <=50); COCAINE, URINE NEG. ng/mL (NEG <=300); OPIATE, URINE NEG. ng/mL (NEG <=2000); PHENCYCLIDINE SCREEN,URINE NEG. ng/mL (NEG <=25)
--- NOTE | 2019-02-18 06:30 | NUR ---
DIAGNOSTIC EXAM US ABDOMEN, LIMITED DONE. PT TOLERATED PROCEDURE WELL. Addendum: 02/18/19 at 725 by Lakesha Whitfield RN 725 AMEND TIME
--- NOTE | 2019-02-18 07:20 | NUR ---
RECEIVED PT FROM NIGHT NURSE IN STABLE CONDITION. AAO X4. PT SLEEPING BUT AROUSABLE TO SPEECH. EXPRESSED SHE DIDN'T SLEEP WELL DURING THE NIGHT. IV IN L AC 20G INFUSING PER ORDER. O2 2L NC. RESPIRATIONS EVEN AND UNLABORED. PT EXPRESSED THAT O2 IS HELPING WITH SOB. SKIN INTACT. BED IN LOW POSITION. SAFETY MEASURES IN PLACE. CALL LIGHT WITHIN REACH. WILL CONTINUE TO MONITOR.
[2019-02-18 07:52] LABS: BASOPHILS # (AUTO) 0.1 K/uL (0.00-0.22); BASOPHILS % (AUTO) 1.7 % (0.0-2.0); EOSINOPHILS # (AUTO) 0.5 K/uL (0-0.4); EOSINOPHILS % (AUTO) 9.3 % (0.0-4.0); HEMATOCRIT 32.4 % (36-48); HEMOGLOBIN 10.9 g/dL (12.0-16.0); LYMPHOCYTES # (AUTO) 1.3 K/uL (2.5-16.5); LYMPHOCYTES % (AUTO) 25.7 % (20.5-51.1); MEAN CORPUSCULAR HEMOGLOBIN 35 pg (27-31); MEAN CORPUSCULAR HGB CONC 34 g/dL (33-37); MEAN CORPUSCULAR VOLUME 103.6 fL (80-94); MONOCYTES # (AUTO) 0.7 K/uL (0.8-1.0); MONOCYTES % (AUTO) 13.8 % (1.7-9.3); NEUTROPHILS # (AUTO) 2.5 K/uL (1.8-7.7); NEUTROPHILS % (AUTO) 49.5 % (42.2-75.2); PLATELET COUNT (AUTO) 115 K/uL (140-450); RED BLOOD CELL COUNT(AUTO) 3.13 MIL/uL (4.20-5.40); RED CELL DISTRIBUTION WIDTH 14.4 % (11.6-13.7); WHITE BLOOD COUNT (AUTO) 5.1 K/uL (4.8-10.8)
[2019-02-18 07:55] LABS: ANION GAP 14.1 (8-16); CARBON DIOXIDE 30.4 mmol/L (21-32); POTASSIUM 4.5 mmol/L (3.5-5.1)
[2019-02-18 07:59] LABS: CREATININE 6.6 mg/dL (0.6-1.3)
[2019-02-18 08:00] VITALS: BP 105/52
--- NOTE | 2019-02-18 08:20 | NUR ---
MEDICATIONS ADMINISTERED PER ORDER. PT TOLERATED WELL. NO DISTRESS NOTED. WILL CONTINUE TO MONITOR.
--- NOTE | 2019-02-18 08:22 | NUR ---
PATIENT HAS BEEN SCREENED AND CATEGORIZED MODERATE NUTRITION RISK. PATIENT WILL BE SEEN WITHIN 3-5 DAYS OF ADMISSION. 02/20/19 02/22/[address]
[2019-02-18] MEDS: cloNIDine 0.1 MG TAB PO SCH ×2 (08:31→21:00)
[2019-02-18] MEDS: ASPIRIN 81 MG TAB.CHEW PO SCH (08:31)
[2019-02-18] MEDS: FUROSEMIDE 40 MG/4 ML VIAL IVP SCH (08:31)
[2019-02-18] MEDS: AMIODARONE 200 MG TAB PO SCH (08:32)
[2019-02-18] MEDS: METOPROLOL SUCCINATE 50 MG TABER PO SCH (08:33)
[2019-02-18] MEDS: CALCIUM CARBONATE 500 MG TAB.CHEW PO SCH (08:34)
--- NOTE | 2019-02-18 10:00 | NUR ---
PATIENT SITTING DOWN IN BED WATCHING TV. NO DISTRESS NOTED. WILL CONTINUE TO MONITOR.
--- NOTE | 2019-02-18 11:55 | NUR ---
ADMINISTERED PRN ZOFRAN PRIOR TO HD. PT TOLERATED WELL, NO SIGNS OF DISTRESS. WILL CONTINUE TO MONITOR.
[2019-02-18 12:00] VITALS: BP 130/55
--- NOTE | 2019-02-18 13:40 | NUR ---
GAVE PT A DIET COLA REQUESTED. PT RECEIVING DIALYSIS. NO DISTRESS NOTED. SAFETY MEASURES IN PLACE. WILL CONTINUE TO MONITOR.
[2019-02-18 16:00] VITALS: BP 112/56
--- NOTE | 2019-02-18 16:30 | NUR ---
CHECKED ON PT FOR VITAL SIGNS MONITORING. PT DENIES PAIN OR DISTRESS. SAFETY MEASURES IN PLACE. WILL CONTINUE TO MONITOR.
--- NOTE | 2019-02-18 17:00 | NUR ---
HEMODIALYSIS COMPLETED, 2.2 L OUT. V/S STABLE. WILL CONTINUE TO MONITOR.
--- NOTE | 2019-02-18 18:37 | NUR ---
PATIENT HAD HD TODAY. DID NOT URINATE NOR HAD A BM ON SHIFT. OCCULT BLOOD AND URINE SAMPLE STILL NEEDS COLLECTION. WILL ENDORSE TO DATA STEWARD RN.
--- NOTE | 2019-02-18 19:05 | NUR ---
HAND OFF OF PT TO NIGHT NURSE IN STABLE CONDITION FOR CONTINUITY OF CARE. SAFETY MEASURES IN PLACE. CALL LIGHT WITHIN REACH.
--- NOTE | 2019-02-18 19:06 | NUR ---
RECEIVED BEDSIDE REPORT FROM AM NURSE FOR CONTINUITY OF CARE. AAO X4.NIGERIAN BUT CAN SPEAK AMHARIC. AMBULATORY, WITH IV IN L AC 20G INFUSING AT 10 ML/ HR, PATENT. O2 SAT AT 98% W/O O2 VIA NASAL CANNULA . DR. COTO AWARE. RESPIRATIONS EVEN AND UNLABORED. SKIN INTACT. BED IN LOW POSITION. SAFETY MEASURES IN PLACE. CALL LIGHT WITHIN REACH. WILL CONTINUE TO MONITOR.
[2019-02-18 20:00] VITALS: BP 111/63
--- NOTE | 2019-02-18 20:25 | NUR ---
PT C/O OF ITCHINESS GENERALIZED ALL OVER BODY. AWARE. WILL ORDER LOW DOSE BENADRYL
--- NOTE | 2019-02-18 20:25 | NUR ---
CLONIDINE AT THIS TIME NOT GIVEN BP 116/63. DR. COTO AT BEDSIDE AND ORDERED TO GIVE IT LATER, ONCE BP WILL GO HIGH AGAIN. GOT CLONIDINE FROM [facility] FOR 2099 BUT WITHHELD FOR NOW UNTIL NEXT BP AND HR CHECK
--- NOTE | 2019-02-18 20:25 | NUR ---
RE: CT WITH OR WITHOUT CONTRAST, AT BEDSIDE EXPLAINED THE BENEFITS AND RISKS. PT REFUSED TO SIGN AT THIS TIME.
--- NOTE | 2019-02-18 20:27 | NUR ---
PT C/O NAUSEA, DR. COTO CAME TO BEDSIDE. ORDERED MAY GIVE ONDASETRON PRN FOR N/V. IN THE PYXIS, DID THE OVERIDE BECAUSE IT WAS NOT IN THE PROFILE MEDS. CHARGE NURSE AWARE
[2019-02-18] MEDS: DULoxetine 30 MG CAPDR PO SCH (20:40)
--- NOTE | 2019-02-18 21:00 | NUR ---
PT LOW PLATELET 115 WITHHELD THE HEPARIN SQ; D DIMER 902
--- NOTE | 2019-02-18 22:00 | NUR ---
COLLECTED URINE PT VOIDED, OLIGURIC BUT PRODUCED MORE THAN 10 ML OF URINE. SENT TO LAB.
--- NOTE | 2019-02-18 22:30 | NUR ---
ADMINISTERED BENADRYL ONCE PT SCRATCHING HER LOWER EXTREMITIES HARD.
--- NOTE | 2019-02-18 22:30 | NUR ---
FOLLOWED UP W/ DR. COTO THROUGH CHARGE NURSE MARINO. DR. COTO SAID THAT THE [employer] VENOUS IS NEGATIVE FOR DVT SO IN THE AM THEY WILL DISCUSS (RESIDENTS OF DR. ABREU) IF THEY WILL PUSH THROUGH WITH THE CT SCAN WITH OR WITHOUT CONTRAST Addendum: 02/18/19 at 2233 by Lakesha Whitfield RN RE: CT SCAN WITH OR WITHOUT CONTRAST TO R/O P.E
[2019-02-18 23:19] LABS: APPEARANCE,URINE SL CLOUDY (CLEAR); BILIRUBIN,URINE NEGATIVE (NEGATIVE); BLOOD, URINE NEGATIVE (NEGATIVE); COLOR,URINE YELLOW (YELLOW); LEUKOCYTE ESTERASE ,URINE NEGATIVE (NEGATIVE); NITRITE, URINE NEGATIVE (NEGATIVE); UGLUCOSE NEGATIVE (NEGATIVE)
[2019-02-19] VITALS: BP 132/61
--- NOTE | 2019-02-19 | NUR ---
SLEEPING BUT ABLE TO BE AWAKENED BY VERBAL STIMULI. NO SOB, NO COMPLAINTS OF PAIN
--- NOTE | 2019-02-19 02:15 | NUR ---
PT SLEEPING COMFORTABLE. CHECKED ON HER HOURLY. WILL CONTINUE TO MONITOR
--- NOTE | 2019-02-19 03:45 | NUR ---
PT AWAKE ALERT ORIENTED X 4, AMBULATORY STILL FOR OCCULT BLOOD. PT IN STABLE CONDITION, WILL ENDORSE TO NEXT SHIFT
[2019-02-19 04:00] VITALS: BP 132/62
[2019-02-19] MEDS ORDERED: ACETAMINOPHEN 325 MG TAB ONE (04:36)
--- NOTE | 2019-02-19 07:30 | NUR ---
RECEIVED PT REPORT. PT AWAKE, ALERT. ON RA, NO S/S OF RESPIRATORY DISTRESS NOTED. PT HAS IV TO LEFT AC RUNNING 0.9 NS AT 10 CC/HR. PT ABLE TO AMBULATE. CALL LIGHT IN REACH, WILL CONTINUE TO MONITOR.
[2019-02-19 07:54] LABS: BASOPHILS # (AUTO) 0.1 K/uL (0.00-0.22); BASOPHILS % (AUTO) 1.3 % (0.0-2.0); EOSINOPHILS # (AUTO) 0.5 K/uL (0-0.4); HEMATOCRIT 33.5 % (36-48); HEMOGLOBIN 11.4 g/dL (12.0-16.0); LYMPHOCYTES # (AUTO) 1.3 K/uL (2.5-16.5); LYMPHOCYTES % (AUTO) 28.9 % (20.5-51.1); MEAN CORPUSCULAR HEMOGLOBIN 35 pg (27-31); MEAN CORPUSCULAR HGB CONC 34 g/dL (33-37); MEAN CORPUSCULAR VOLUME 102.9 fL (80-94); MONOCYTES # (AUTO) 0.7 K/uL (0.8-1.0); MONOCYTES % (AUTO) 15.4 % (1.7-9.3); NEUTROPHILS # (AUTO) 1.9 K/uL (1.8-7.7); NEUTROPHILS % (AUTO) 43.4 % (42.2-75.2); PLATELET COUNT (AUTO) 112 K/uL (140-450); RED BLOOD CELL COUNT(AUTO) 3.26 MIL/uL (4.20-5.40); WHITE BLOOD COUNT (AUTO) 4.4 K/uL (4.8-10.8)
[2019-02-19 08:00] VITALS: BP 126/58
[2019-02-19 08:02] LABS: ANION GAP 8.2 (8-16); CARBON DIOXIDE 34.3 mmol/L (21-32); POTASSIUM 4.5 mmol/L (3.5-5.1)
[2019-02-19 08:03] LABS: MAGNESIUM 1.7 mg/dL (1.8-2.4); PHOSPHORUS 4.5 mg/dL (2.5-4.9)
[2019-02-19 08:08] LABS: FOLIC ACID 7.3 ng/mL (>3.0)
[2019-02-19 08:16] LABS: CREATININE 5.2 mg/dL (0.6-1.3)
--- NOTE | 2019-02-19 08:56 | NUR ---
PT STATED SHE WANTS TO TALK TO HER PCP REGARDING CHEST CT WITH CONTRAST, CALLED STRIP CUTTER.
[2019-02-19] MEDS: cloNIDine 0.1 MG TAB PO SCH ×2 (09:00→20:37)
[2019-02-19] MEDS ORDERED: MAGNESIUM OXIDE 400 MG TAB PO SCH (09:00)
[2019-02-19] MEDS: METOPROLOL SUCCINATE 50 MG TABER PO SCH (09:00)
--- NOTE | 2019-02-19 09:05 | NUR ---
PT AND PT'S SON HAS DISAGREEMENT ON CHEST CT WITH CONTRAST, PT DOES NOT WANT TO DO CHEST CONTRAST WITH CT.WILL F/U.
[2019-02-19] MEDS: CALCIUM CARBONATE 500 MG TAB.CHEW PO SCH (09:18)
[2019-02-19] MEDS: AMIODARONE 200 MG TAB PO SCH (09:21)
[2019-02-19] MEDS: FUROSEMIDE 40 MG/4 ML VIAL IVP SCH (09:21)
[2019-02-19] MEDS: ASPIRIN 81 MG TAB.CHEW PO SCH (09:22)
--- NOTE | 2019-02-19 09:23 | NUR ---
DR. BARRIENTOS AT BEDSIDE TO EXPLAIN TO PT. PT AND PT'S SON AGREED TO DO CT WITH CONTRAST. PER DR. BARRIENTOS. HOLD BP MEDS CATAPRESS AND METOPOLOL BECAUSE PT WILL HAVE DIALYSIS AFTER CHEST CT WITH CONTRAST.
[2019-02-19] MEDS ORDERED: ONDANSETRON 4 MG/2 ML VIAL ONE ×2 (10:47→20:35)
[2019-02-19] MEDS: ONDANSETRON 4 MG/2 ML VIAL IM/IVP PRN ×2 (10:48→20:36)
--- NOTE | 2019-02-19 10:50 | NUR ---
PT BACK TO ROOM FROM CT. ZOFRAN GIVEN DUE TO PT C/O NAUSEA. WILL CONTINUE TO MONITOR.
--- NOTE | 2019-02-19 11:28 | NUR ---
NOTIFIED DR. BARRIENTOS PT HAS SMALL PE AT RIGHT LOWER LOBE.
[2019-02-19] MEDS ORDERED: HEPARIN PER PHARMACY MC PRN (11:30)
[2019-02-19 12:00] VITALS: BP 156/78
[2019-02-19 12:30] LABS: PROTHROMBIN TIME 10.8 secs (10.8-13.4)
--- NOTE | 2019-02-19 14:16 | NUR ---
PAGED DR. ZIMMERMAN REGARDING HD AND HEPARIN DRIP ORDER.
--- NOTE | 2019-02-19 14:30 | NUR ---
PAGED DR. PAIZ AGAIN.
--- NOTE | 2019-02-19 14:50 | NUR ---
received phone call from [facility] HD nurse, per [facility], told her it is ok to HD AND HEPARIN DRIP AT THE SAME TIME.
[2019-02-19] MEDS ORDERED: diphenhydrAMINE 50 MG/ML VIAL IVP SCH (15:00)
--- NOTE | 2019-02-19 15:00 | NUR ---
DIALYSIS NURSE AT BEDSIDE TO START DIALYSIS.
[2019-02-19] MEDS: hePARIN / DEXT 5% PREMIX 250 ML IV SCH (15:13)
[2019-02-19 16:00] VITALS: BP 146/73
--- NOTE | 2019-02-19 17:26 | NUR ---
CHARGE NURSE PAGED AND DR. BARRIENTOS ALSO MADE AWARE PT'S HD ACCESS WAS CLOGGED. DR. BARRIENTOS SATTED SHE WILL TEXT DR. PAIZ. PER DIALYSIS NURSE NO OUT PUT.
--- NOTE | 2019-02-19 17:42 | NUR ---
CHECKED PT. PT STATED SHE FEELS FINE. NOTIFIED PT TO USE CALL LIGHT IF SHE HAS ANY DISCOMFORT.
--- NOTE | 2019-02-19 17:45 | NUR ---
DR. ZIMMERMAN CALLED BACK. NOTIFIED DR. ZIMMERMAN NO ACCESS FOR DIALYSIS. PER DR. ZIMMERMAN, LEAVE IT FOR TOMORROW. DR. ZIMMERMAN ALSO MADE AWARE OF THAT PT HAS DIALYSIS TOMORROW ( M,W,F).
--- NOTE | 2019-02-19 18:15 | NUR ---
PT EATING IN BED. SON AT BEDSIDE.
--- NOTE | 2019-02-19 19:20 | NUR ---
RECEIVED BEDSIDE REPORT FROM DAY SHIFT NURSE. PATIENT IS AWAKE, ALERT, AND COOPERATIVE RESPIRATION EVEN UNLABORED ON ROOM AIR. RIGHT AV FISTULA SHUNT NOTED. SKIN IS WARM AND DRY. IV PATENT AND INTACT. HEPARIN DRIP RUNNING AT 1300 UNITS/HR. PLAN OF CARE WAS DISCUSSED. ALL SAFETY MEASURES IN PLACE. BED IS AT LOW POSITION. CALL LIGHT WITHIN REACH AND VERBALIZES ITS USE. WILL CONTINUE TO MONITOR.
[2019-02-19 20:00] VITALS: BP 158/76
--- NOTE | 2019-02-19 20:00 | NUR ---
INITIAL ASSESSMENT DONE. VITALS WERE TAKEN. PATIENT IN STABLE CONDITION. WILL CONTINUE TO MONITOR.
--- NOTE | 2019-02-19 20:30 | NUR ---
ALL SCHEDULED MEDS WERE GIVEN PER ORDER. WILL CONTINUE TO MONITOR.
[2019-02-19] MEDS: DULoxetine 30 MG CAPDR PO SCH (20:36)
--- NOTE | 2019-02-19 20:40 | NUR ---
PATIENT COMPLAINED OF FEELING NAUSEOUS. PRN ANTIEMETIC GIVEN 4MG IM PER ORDER. WILL CONTINUE TO MONITOR.
--- NOTE | 2019-02-19 21:51 | NUR ---
PATIENT RIGHT AV FISTULA SHUNT BLEEDING APPLIED PRESSURE AND DRESSING. WILL CONTINUE TO MONITOR.
--- NOTE | 2019-02-19 22:00 | NUR ---
PATIENT COMPLAINED OF ITCHINESS ALL OVER HER BODY. PRN BENADRYL 12.5MG PO ADMINISTERED PER ORDER. WILL CONTINUE TO MONITOR
[2019-02-20] VITALS: BP 137/76
[2019-02-20] MEDS: NACL 0.9% 1,000 ML IV SCH
--- NOTE | 2019-02-20 | NUR ---
VITALS WERE TAKEN. PATIENT IN STABLE CONDITION. WILL CONTINUE TO MONITOR.
--- NOTE | 2019-02-20 00:15 | NUR ---
APPT >150. WILL HOLD HEPARIN DRIP FOR AN HOUR PROTOCOL. MD IS AWARE OF THE RESULT
--- NOTE | 2019-02-20 01:15 | NUR ---
START HEPARIN DRIP AND ITS RUNNING 10ML/HR. WILL CONTINUE TO MONITOR.
[2019-02-20] MEDS: hePARIN / DEXT 5% PREMIX 250 ML IV SCH (01:18)
--- NOTE | 2019-02-20 01:33 | NUR ---
PATIENT AV SHUNT FISTULA DRESSING SATURATED WITH BLOOD. CHANGED DRESSING. WILL CONTINUE TO MONITOR.
--- NOTE | 2019-02-20 03:02 | NUR ---
PATIENT SLEEPING RESPIRATION EVEN UNLABORED ON ROOM AIR. NO DISTRESS NOTED. WILL CONTINUE TO MONITOR.
[2019-02-20 04:00] VITALS: BP 131/61
--- NOTE | 2019-02-20 04:00 | NUR ---
VITALS WERE TAKEN. PATIENT IN STABLE CONDITION. WILL CONTINUE TO MONITOR.
--- NOTE | 2019-02-20 07:21 | NUR ---
ENDORSED PATIENT TO DAY SHIFT NURSE. PATIENT IN STABLE CONDITION
[2019-02-20 07:37] LABS: BASOPHILS # (AUTO) 0.1 K/uL (0.00-0.22); BASOPHILS % (AUTO) 1.3 % (0.0-2.0); EOSINOPHILS # (AUTO) 0.4 K/uL (0-0.4); EOSINOPHILS % (AUTO) 10.2 % (0.0-4.0); HEMATOCRIT 31.6 % (36-48); HEMOGLOBIN 10.8 g/dL (12.0-16.0); LYMPHOCYTES % (AUTO) 23.5 % (20.5-51.1); MEAN CORPUSCULAR HEMOGLOBIN 35 pg (27-31); MEAN CORPUSCULAR HGB CONC 34 g/dL (33-37); MEAN CORPUSCULAR VOLUME 101.3 fL (80-94); MONOCYTES # (AUTO) 0.6 K/uL (0.8-1.0); NEUTROPHILS # (AUTO) 2.2 K/uL (1.8-7.7); PLATELET COUNT (AUTO) 113 K/uL (140-450); RED BLOOD CELL COUNT(AUTO) 3.12 MIL/uL (4.20-5.40); RED CELL DISTRIBUTION WIDTH 14.1 % (11.6-13.7); WHITE BLOOD COUNT (AUTO) 4.2 K/uL (4.8-10.8)
--- NOTE | 2019-02-20 07:41 | NUR ---
RECEIVED BEDSIDE REPORT FROM CITY MANAGER NURSE. PATIENT IS AAOX4 AND COOPERATIVE. RESPIRATIONS EVEN AND UNLABORED ON ROOM AIR. RIGHT AV FISTULA SHUNT NOTED. PER CITY MANAGER, SHUNT WILL BLEED AND SATURATE DRESSING. DRESSING NEEDS TO BE CHANGED PRN. SKIN IS WARM AND DRY. IV IN THE LEFT AC20G PATENT AND INTACT INFUSING HEPARIN @1.000UNITS(10MLS)/HR. PLAN OF CARE WAS DISCUSSED WITH PT AND PT VERBALIZED UNDERSTANDING. ALL SAFETY MEASURES IN PLACE. BED IN LOW POSITION. CALL LIGHT WITHIN REACH. WILL MONITOR PT CLOSELY.
[2019-02-20 07:52] LABS: ANION GAP 14.1 (8-16); POTASSIUM 5.1 mmol/L (3.5-5.1)
[2019-02-20 07:56] LABS: MAGNESIUM 1.9 mg/dL (1.8-2.4); PHOSPHORUS 5.3 mg/dL (2.5-4.9)
[2019-02-20 08:01] LABS: CREATININE 6.8 mg/dL (0.6-1.3)
[2019-02-20 08:05] VITALS: BP 126/65
--- NOTE | 2019-02-20 08:49 | NUR ---
APPT IS 127.2. WILL HOLD HEPARIN DRIP FOR AN HOUR PER PROTOCOL. MD IS AWARE OF THE RESULT AND TOLD TO FOLLOW PROTOCOL WELL.
[2019-02-20] MEDS: FUROSEMIDE 40 MG/4 ML VIAL IVP SCH ×2 (09:00→12:45)
[2019-02-20] MEDS: cloNIDine 0.1 MG TAB PO SCH ×2 (09:00→21:56)
[2019-02-20] MEDS: METOPROLOL SUCCINATE 50 MG TABER PO SCH ×2 (09:00→12:45)
[2019-02-20] MEDS ORDERED: SODIUM CHLORIDE 1 GM TAB PO SCH ×2 (09:32→21:00)
--- NOTE | 2019-02-20 09:48 | NUR ---
ADMINISTERED MORNING MEDS TO PT. PT TOLERATED THEM WELL. ALL NEEDS MET. WILL CONTINUE TO ROUND FREQUENTLY ON PT. HEPARIN IS STILL ON HOLD. WILL START AGAIN AT 1000 WITH DECREASE OF 200UNITS TO 800UNITS/HR. PT IN STABLE CONDITION. NO SIGNS OF DISTRESS, PAIN, OR BLEEDING. WILL CONTINUE TO ROUND FREQUENTLY .
[2019-02-20] MEDS: ASPIRIN 81 MG TAB.CHEW PO SCH (09:54)
[2019-02-20] MEDS: CALCIUM CARBONATE 500 MG TAB.CHEW PO SCH (09:58)
[2019-02-20] MEDS: AMIODARONE 200 MG TAB PO SCH (10:00)
[2019-02-20] MEDS: diphenhydrAMINE 50 MG/ML VIAL IVP PRN ×2 (10:02→18:44)
[2019-02-20] MEDS: ONDANSETRON 4 MG/2 ML VIAL IM/IVP PRN ×2 (10:02→18:44)
--- NOTE | 2019-02-20 11:35 | NUR ---
PT RESTING IN BED. ALL NEEDS MET. WILL CONTINUE TO ROUND FREQUENTLY ON PT. BED IN LOW POSITION, CALL LIGHT WITHIN REACH.
[2019-02-20 12:00] VITALS: BP 151/68
--- NOTE | 2019-02-20 13:41 | NUR ---
PT SLEEPING. NO COMPLAINTS OF PAIN AT THIS TIME. ALL NEEDS MET.
--- NOTE | 2019-02-20 15:38 | NUR ---
PT RESTING IN BED. ALL NEEDS MET. WILL ROUND FREQUENTLY ON PT.
[2019-02-20 16:00] VITALS: BP 132/69
--- NOTE | 2019-02-20 17:47 | NUR ---
PT RESTING ON BEDSIDE CHAIR HAVING DINNER. ALL NEEDS MET. WILL CONTINUE TO ROUND FREQUENTLY ON PT. BED IN LOW POSITION, CALL LIGHT WITHIN REACH.
[2019-02-20] MEDS ORDERED: APIXABAN 2.5 MG TAB PO SCH (18:00)
--- NOTE | 2019-02-20 19:44 | NUR ---
ENDORSED PT TO PLANT CHANGER FOR CONTINUITY OF CARE. PT INSTABLE CONDITION AT THIS TIME.
--- NOTE | 2019-02-20 19:45 | NUR ---
RECEIVED REPORT FROM AM SHIFT RN FOR PT'S CONTINUITY OF CARE. 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 PT'S AV SHUNT SITE BLEEDING, COVERED WITH DRESSING, DRY AND INTACT, DENIES ANY PAIN AT THIS TIME. EXPLAINED TO PT RESEARCH AND DEVELOPMENT TESTER ROUTINE, PT VERBALIZED UNDERSTANDING. BED IS ON LOW POSITION, SIDE RAILS ARE UP, AND CALL LIGHT IS WITHIN REACH. WILL MONITOR PT THROUGHOUT SHIFT.
[2019-02-20 20:00] VITALS: BP 152/77
[2019-02-20] MEDS: DULoxetine 30 MG CAPDR PO SCH (21:55)
--- NOTE | 2019-02-20 21:55 | NUR ---
ADMINISTERED SCHEDULED MEDICATIONS ORDERED. PT TOLERATED THEM WELL. PT DENIES ANY PAIN AT THIS TIME. WILL CONTINUE TO MONITOR PT.
[2019-02-21] VITALS: BP 123/56
--- NOTE | 2019-02-21 | NUR ---
VS CHECKED AND CHARTED. PT DENIES ANY PAIN AT THIS TIME. PT STATES SHE GETS GENERALIZED ITCHINESS, INFORMED PT DIPHENHYDRAMINE NOT DUE FOR ADMINISTRATION YET. PT VERBALIZED UNDERSTANDING. WILL CONTINUE TO MONITOR PT.
[2019-02-21] MEDS: diphenhydrAMINE 50 MG/ML VIAL IVP PRN ×3 (01:05→19:23)
--- NOTE | 2019-02-21 01:05 | NUR ---
PT C/O GENERALIZED ITCHINESS, ADMINISTERED IV PUSH DIPHENHYDRAMINE ORDERED. PT TOLERATED IT WELL. WILL CONTINUE TO MONITOR PT.
--- NOTE | 2019-02-21 01:15 | NUR ---
RECEIVED PT FROM VINCENT WILSON FOR CONTINUOS CARE. PT IN STABLE CONDITION.
--- NOTE | 2019-02-21 03:04 | NUR ---
PT SLEEPING IN BED. BREATHING EVEN AND UNLABORED. NO ACUTE DISTRESS NOTED. WILL CONTINUE TO MONITOR.
[2019-02-21 04:00] VITALS: BP 122/61
--- NOTE | 2019-02-21 05:30 | NUR ---
PT SLEEPING IN BED. RESPIRATORY EVEN AND UNLABORED. NO ACUTE DISTRESS NOTED. WILL CONTINUE TO MONITOR.
[2019-02-21 06:48] LABS: BASOPHILS # (AUTO) 0.1 K/uL (0.00-0.22); EOSINOPHILS # (AUTO) 0.4 K/uL (0-0.4); EOSINOPHILS % (AUTO) 12.2 % (0.0-4.0); HEMATOCRIT 26.9 % (36-48); HEMOGLOBIN 9.2 g/dL (12.0-16.0); LYMPHOCYTES # (AUTO) 0.9 K/uL (2.5-16.5); LYMPHOCYTES % (AUTO) 27.4 % (20.5-51.1); MEAN CORPUSCULAR HEMOGLOBIN 35 pg (27-31); MEAN CORPUSCULAR HGB CONC 34 g/dL (33-37); MEAN CORPUSCULAR VOLUME 100.9 fL (80-94); MONOCYTES # (AUTO) 0.5 K/uL (0.8-1.0); MONOCYTES % (AUTO) 13.4 % (1.7-9.3); NEUTROPHILS # (AUTO) 1.6 K/uL (1.8-7.7); PLATELET COUNT (AUTO) 112 K/uL (140-450); RED BLOOD CELL COUNT(AUTO) 2.67 MIL/uL (4.20-5.40); RED CELL DISTRIBUTION WIDTH 13.6 % (11.6-13.7); WHITE BLOOD COUNT (AUTO) 3.5 K/uL (4.8-10.8)
--- NOTE | 2019-02-21 07:00 | NUR ---
PT SLEEPING IN BED. NO ACUTE DISTRESS NOTED.
[2019-02-21 07:11] LABS: ANION GAP 16.1 (8-16); CARBON DIOXIDE 25.9 mmol/L (21-32)
--- NOTE | 2019-02-21 07:15 | NUR ---
RECEIVED REPORT FROM BARREL HANDLER NURSE CHANDLER FOR CONTINUITY OF CARE. PT IN STABLE CONDITION. RESPIRATIONS EVEN AND UNLABORED. IV INTACT AND PATENT. SAFETY MEASURES IN PLACE. BED IN LOW POSITION. CALL LIGHT AT BEDSIDE. BED ALARM ON. WILL CONTINUE TO MONITOR.
[2019-02-21 08:00] VITALS: BP 137/73
[2019-02-21] MEDS: APIXABAN 2.5 MG TAB PO SCH ×2 (09:00→20:52)
--- NOTE | 2019-02-21 09:08 | NUR ---
TORB DR. ZIMMERMAN ORDER BMP IN AM DUE TO CRITICAL CREAT AND BUN
[2019-02-21] MEDS: FUROSEMIDE 40 MG/4 ML VIAL IVP SCH (09:11)
[2019-02-21] MEDS: CALCIUM CARBONATE 500 MG TAB.CHEW PO SCH (09:12)
[2019-02-21] MEDS: AMIODARONE 200 MG TAB PO SCH (09:12)
[2019-02-21] MEDS: ASPIRIN 81 MG TAB.CHEW PO SCH (09:12)
[2019-02-21] MEDS: METOPROLOL SUCCINATE 50 MG TABER PO SCH (09:14)
[2019-02-21] MEDS: cloNIDine 0.1 MG TAB PO SCH ×2 (09:15→20:46)
[2019-02-21] MEDS: SODIUM CHLORIDE 1 GM TAB PO SCH ×2 (09:15→20:53)
[2019-02-21] MEDS: ONDANSETRON 4 MG/2 ML VIAL IM/IVP PRN ×2 (09:23→19:23)
--- NOTE | 2019-02-21 09:36 | NUR ---
GAVE ORDERED DUE MEDICATIONS. HELD ELIQUIS DUE TO LOW PLATELETS. PT IN STABLE CONDITION. WILL CONTINUE TO MONITOR.
--- NOTE | 2019-02-21 11:33 | NUR ---
PT LYING IN BED SLEEPING AT THIS TIME. RESPIRATIONS EVEN AND UNLABORED. BED IN LOW POSITION. CALL LIGHT AT BEDSIDE. BED ALARM ON. WILL CONTINUE TO MONITOR.
[2019-02-21 12:00] VITALS: BP 138/74
--- NOTE | 2019-02-21 13:01 | NUR ---
CALLED [facility] FOR LUNCH TRAY. PT RECEIVED LUNCH TRAY AT THIS TIME. PT IN STABLE CONDITION.
[2019-02-21 14:05] LABS: ALBUMIN 2.7 g/dL (3.4-5.0); ANION GAP 15.2 (8-16); CARBON DIOXIDE 26.2 mmol/L (21-32); POTASSIUM 5.4 mmol/L (3.5-5.1); TOTAL BILIRUBIN 0.6 mg/dL (0.0-1.0)
[2019-02-21 14:11] LABS: CREATININE 8.6 mg/dL (0.6-1.3)
--- NOTE | 2019-02-21 15:42 | NUR ---
PT LYING IN BED WATCHING TV IN STABLE CONDITION. BED IN LOW POSITION. CALL LIGHT AT BEDSIDE. BED ALARM ON. WILL CONTINUE TO MONITOR.
[2019-02-21 16:00] VITALS: BP 144/70
[2019-02-21] MEDS ORDERED: LOKELMA 10 GM PACKET PO SCH (16:00)
[2019-02-21] MEDS ORDERED: PATIROMER CALCIUM SORBITEX 8.4 GM PKT PO PRN (16:15)
--- NOTE | 2019-02-21 17:47 | NUR ---
PT LYING IN BED EATING DINNER AT THIS TIME IN STABLE CONDITION. BED IN LOW POSITION. CALL LIGHT AT BEDSIDE. BED ALARM ON. WILL CONTINUE TO MONITOR.
--- NOTE | 2019-02-21 19:17 | NUR ---
GAVE REPORT TO GENERAL UTILITY WORKER NURSE DION FOR CONTINUITY OF CARE.
--- NOTE | 2019-02-21 19:18 | NUR ---
Received endorsement from AM shift RN; patient A/Ox4, able to make needs known, [place] speaking, ambulatory. Introduced self, updated board. No SOB or distress noted, on room air. IV site on left antecubital, 20 gauge, saline locked. Right upper arm AV shunt noted. Skin intact. Bed in the lowest position, call light within reach. Initial assessment done. Will continue to monitor.
[2019-02-21 20:00] VITALS: BP 130/66
--- NOTE | 2019-02-21 20:30 | NUR ---
Vitals taken, no distress noted.
[2019-02-21] MEDS: DULoxetine 30 MG CAPDR PO SCH (20:45)
[2019-02-21] MEDS ORDERED: ZOLP10TA1 PO (20:48)
[2019-02-21] MEDS: ZOLPIDEM 10 MG TAB PO SCH (21:01)
--- NOTE | 2019-02-21 21:40 | NUR ---
Due meds given, tolerated well.
--- NOTE | 2019-02-21 23:45 | NUR ---
Vitals taken; patient asleep on right lateral side, visible chest rise and fall noted.
[2019-02-22] VITALS: BP 107/71
--- NOTE | 2019-02-22 02:03 | NUR ---
Rounds done; no SOB or distress noted.
[2019-02-22 04:00] VITALS: BP 120/60
--- NOTE | 2019-02-22 04:20 | NUR ---
Vitals take, no distress noted.
--- NOTE | 2019-02-22 06:05 | NUR ---
Vitals stable, due meds given. Will endorse to AM shift RN for continuity of care.
--- NOTE | 2019-02-22 07:25 | NUR ---
RECEIVED REPORT FROM CONVERTER SUPERVISOR NURSE FOR CONTINUITY OF CARE. PT IN STABLE CONDITION. IV INTACT AND PATENT. RESPIRATIONS EVEN AND UNLABORED. SAFETY MEASURES IN PLACE. BED IN LOW POSITION. CALL LIGHT AT BEDSIDE. WILL CONTINUE TO MONITOR.
[2019-02-22 07:38] LABS: ANION GAP 14.3 (8-16); POTASSIUM 5.3 mmol/L (3.5-5.1)
[2019-02-22 07:44] LABS: BASOPHILS # (AUTO) 0.1 K/uL (0.00-0.22); EOSINOPHILS # (AUTO) 0.4 K/uL (0-0.4); EOSINOPHILS % (AUTO) 11.1 % (0.0-4.0); HEMATOCRIT 26.5 % (36-48); HEMOGLOBIN 9.1 g/dL (12.0-16.0); LYMPHOCYTES # (AUTO) 0.9 K/uL (2.5-16.5); MEAN CORPUSCULAR HEMOGLOBIN 35 pg (27-31); MEAN CORPUSCULAR HGB CONC 34 g/dL (33-37); MEAN CORPUSCULAR VOLUME 100.9 fL (80-94); MONOCYTES # (AUTO) 0.4 K/uL (0.8-1.0); MONOCYTES % (AUTO) 12.8 % (1.7-9.3); NEUTROPHILS # (AUTO) 1.6 K/uL (1.8-7.7); NEUTROPHILS % (AUTO) 47.1 % (42.2-75.2); PLATELET COUNT (AUTO) 109 K/uL (140-450); RED BLOOD CELL COUNT(AUTO) 2.63 MIL/uL (4.20-5.40); RED CELL DISTRIBUTION WIDTH 13.6 % (11.6-13.7); WHITE BLOOD COUNT (AUTO) 3.4 K/uL (4.8-10.8)
[2019-02-22 08:00] VITALS: BP 110/74
[2019-02-22 08:46] LABS: MAGNESIUM 2.1 mg/dL (1.8-2.4); PHOSPHORUS 6.7 mg/dL (2.5-4.9)
[2019-02-22 08:49] LABS: CREATININE 9.8 mg/dL (0.6-1.3)
[2019-02-22] MEDS: AMIODARONE 200 MG TAB PO SCH (08:58)
[2019-02-22] MEDS: CALCIUM CARBONATE 500 MG TAB.CHEW PO SCH (08:58)
[2019-02-22] MEDS: SODIUM CHLORIDE 1 GM TAB PO SCH ×2 (08:59→21:00)
[2019-02-22] MEDS: FUROSEMIDE 40 MG/4 ML VIAL IVP SCH (08:59)
[2019-02-22] MEDS: ASPIRIN 81 MG TAB.CHEW PO SCH (08:59)
[2019-02-22] MEDS: METOPROLOL SUCCINATE 50 MG TABER PO SCH (09:00)
[2019-02-22] MEDS: diphenhydrAMINE 50 MG/ML VIAL IVP PRN ×2 (09:00→17:53)
[2019-02-22] MEDS: cloNIDine 0.1 MG TAB PO SCH ×2 (09:00→20:54)
[2019-02-22] MEDS: ONDANSETRON 4 MG/2 ML VIAL IM/IVP PRN ×2 (09:00→17:53)
[2019-02-22] MEDS: APIXABAN 2.5 MG TAB PO SCH (09:18)
--- NOTE | 2019-02-22 09:32 | NUR ---
PT SLEEPING AT THIS TIME. RESPIRATIONS EVEN AND UNLABORED. BED IN LOW POSITION. CALL LIGHT AT BEDSIDE. WILL CONTINUE TO MONITOR.
[2019-02-22] MEDS ORDERED: FUROSEMIDE 40 MG/4 ML VIAL IVP SCH (10:15)
[2019-02-22] MEDS ORDERED: LOKELMA 10 GM PACKET PO SCH (10:30)
[2019-02-22] MEDS ORDERED: SODIUM CHLORIDE 1 GM TAB PO SCH (11:45)
--- NOTE | 2019-02-22 12:30 | NUR ---
CALLED PHARMACY FOR SODIUM CHLORIDE TAB. NO ANSWER WILL CALL AGAIN.
--- NOTE | 2019-02-22 12:50 | NUR ---
SPOKE WITH PHARMACY MEDICATION SODIUM CHLORIDE TAB IS ON THE WAY TO THE FLOOR.
--- NOTE | 2019-02-22 14:30 | NUR ---
PT LYING IN BED SLEEPING AT THIS TIME. RESPIRATIONS EVEN AND UNLABORED. BED IN LOW POSITION. CALL LIGHT AT BEDSIDE.
[2019-02-22 16:01] LABS: BASOPHILS # (AUTO) 0.1 K/uL (0.00-0.22); BASOPHILS % (AUTO) 1.9 % (0.0-2.0); EOSINOPHILS # (AUTO) 0.4 K/uL (0-0.4); EOSINOPHILS % (AUTO) 10.5 % (0.0-4.0); HEMATOCRIT 28.3 % (36-48); HEMOGLOBIN 9.6 g/dL (12.0-16.0); LYMPHOCYTES # (AUTO) 0.9 K/uL (2.5-16.5); MEAN CORPUSCULAR HEMOGLOBIN 35 pg (27-31); MEAN CORPUSCULAR HGB CONC 34 g/dL (33-37); MEAN CORPUSCULAR VOLUME 102.1 fL (80-94); MONOCYTES # (AUTO) 0.5 K/uL (0.8-1.0); MONOCYTES % (AUTO) 12.8 % (1.7-9.3); NEUTROPHILS # (AUTO) 1.8 K/uL (1.8-7.7); NEUTROPHILS % (AUTO) 48.8 % (42.2-75.2); PLATELET COUNT (AUTO) 114 K/uL (140-450); RED BLOOD CELL COUNT(AUTO) 2.77 MIL/uL (4.20-5.40); RED CELL DISTRIBUTION WIDTH 14.1 % (11.6-13.7); WHITE BLOOD COUNT (AUTO) 3.6 K/uL (4.8-10.8)
[2019-02-22 16:16] LABS: ALBUMIN 2.9 g/dL (3.4-5.0); ANION GAP 17.4 (8-16); CARBON DIOXIDE 24.2 mmol/L (21-32); POTASSIUM 4.6 mmol/L (3.5-5.1); TOTAL BILIRUBIN 0.6 mg/dL (0.0-1.0)
[2019-02-22 16:25] LABS: CREATININE 9.8 mg/dL (0.6-1.3)
--- NOTE | 2019-02-22 16:25 | NUR ---
PT TALKING WITH FAMILY AT BEDSIDE. RESPIRATIONS EVEN AND UNLABORED. BED IN LOW POSITION. CALL LIGHT AT BEDSIDE. WILL CONTINUE TO MONITOR.
[2019-02-22] MEDS ORDERED: APIX5TAB4 PO ×2 (16:45→16:48)
[2019-02-22] MEDS ORDERED: ZOLP10TA1 PO (16:47)
[2019-02-22] MEDS ORDERED: PNEUMOCOCCAL VACCINE 23 MCG/0.5 ML VIAL IMVAC SCH (18:10)
--- NOTE | 2019-02-22 18:30 | NUR ---
GAVE DISCHARGE INSTRUCTIONS TO PT AND WHERE TO GRILL ATTENDANT PRESCRIPTIONS FROM HOME PHARMACY, PT VERBALIZED UNDERSTANDING OF INSTRUCTIONS. PNA VACCINE GIVEN, PT TOLERATED WELL. BED IN LOW POSITION. CALL LIGHT AT BEDSIDE. WILL CONTINUE TO MONITOR.
--- NOTE | 2019-02-22 19:15 | NUR ---
RECEIVED REPORT FORM LORENA KAUR DAYSHIFT NURSE AT BEDSIDE FOR CONTINUITY OF CARE, PT IN STABLE CONDITION.
--- NOTE | 2019-02-22 19:15 | NUR ---
GAVE REPORT TO SOFTWARE TOOLS ENGINEER NURSE ELMIRA FOR CONTINUITY OF CARE. PT IN STABLE CONDITION.
[2019-02-22] MEDS: ZOLPIDEM 10 MG TAB PO SCH (20:53)
[2019-02-22] MEDS: DULoxetine 30 MG CAPDR PO SCH (20:55)
--- NOTE | 2019-02-22 21:00 | NUR ---
PT IN BED NO S/S OF PAIN OR DISTRESS NOTED. PT WAS ABLE TO AMBULATE TO TOILET AND BACK INDEPENDENTLY. THRILL AND BRUIT FELT ON RIGHT ARM SHUNT. PT DENIES PAIN V/S FOLLOWS T 97.0 P 60 R 18 B/P 137/67 02 97% ON ROOM AIR. PT GIVEN DUE MEDS OF AMBIEN, CATAPRES AND CYMBALTA. EDUCATION REGARDING MEDICATION PROVIDED TO PT. PT VERBALIZED UNDERSTANDING.
[2019-02-22 22:24] VITALS: BP 128/62
--- NOTE | 2019-02-22 22:45 | NUR ---
SON HERE TO TAKE PT HOME. IV SITE REMOVED AND ARM BAND CUT OFF. PT IN STABLE CONDITION.PT ESCORTED OUT BY W/C WITH BELONGINGS IN HAND.
== END 2019-02-22 22:40 | disposition home or self-care (01) | DRG 314 ==
LOC: MED 22:48 → MTU 23:54 → MED 02-18 00:16
PROVIDERS: ADMIT General Practice; ATTEND General Practice
PROC: 5A1D70Z Performance of Urinary Filtration, Intermittent, Less than 6 Hours Per Day (ICD-10-PCS; 2019-02-18)
PROC: 3E0234Z Introduction of Serum, Toxoid and Vaccine into Muscle, Percutaneous Approach (ICD-10-PCS; principal; 2019-02-22)
DX: T82.868A Thrombosis due to vascular prosthetic devices, implants and grafts, initial encounter (principal); I50.43 Acute on chronic combined systolic (congestive) and diastolic (congestive) heart failure; N17.0 Acute kidney failure with tubular necrosis; N18.6 End stage renal disease; I26.99 Other pulmonary embolism without acute cor pulmonale; E44.1 Mild protein-calorie malnutrition; E87.1 Hypo-osmolality and hyponatremia; I12.0 Hypertensive chronic kidney disease with stage 5 chronic kidney disease or end stage renal disease; I48.20 Chronic atrial fibrillation, unspecified; Q61.3 Polycystic kidney, unspecified; M94.0 Chondrocostal junction syndrome [Tietze]; D63.1 Anemia in chronic kidney disease; I25.10 Atherosclerotic heart disease of native coronary artery without angina pectoris; Y83.2 Surgical operation with anastomosis, bypass or graft as the cause of abnormal reaction of the patient, or of later complication, without mention of misadventure at the time of the procedure; E11.22 Type 2 diabetes mellitus with diabetic chronic kidney disease; F32.9 Major depressive disorder, single episode, unspecified; K21.9 Gastro-esophageal reflux disease without esophagitis; E87.5 Hyperkalemia; Z68.28 Body mass index [BMI] 28.0-28.9, adult; Z79.01 Long term (current) use of anticoagulants; Z95.0 Presence of cardiac pacemaker; Z99.2 Dependence on renal dialysis; Z23 Encounter for immunization
CPT/HCPCS: 36415; 71045; 71275; 76705; 80048; 80053; 80305; 81003; 82150; 82607; 82728; 82746; 83540; 83605; 83690; 83735; 83880; 84100; 84484; 85025; 85045; 85379; 85610; 85730; 87081; 90732; 93005; 93970; 99285; J1200; J1644; J1940; J2405; J7030; Q0092; Q0163; Q9967